=== PATIENT | female | born 1995 | race Caucasian/White ===

== ENCOUNTER 2017-11-11 14:22 | Emergency (ER) | payer OTHER ==
[~2017-11-11] VITALS: Ht 157.5 cm; Wt 65.0 kg
[2017-11-11 15:11] VITALS: TEMP 36.9; Ht 157.5 cm; Wt 65.0 kg
[2017-11-11] MEDS ORDERED: PRVHFAIN INH (16:05)
[2017-11-11] MEDS ORDERED: BCPILLS PO (16:05)
[2017-11-11 17:28] VITALS: BP 143/85; PULSE 83; O2SAT 97
[2017-11-11] MEDS ORDERED: MACROBID 100MG HOME PACK 1 EA VIAL PO ONE (17:30)
[2017-11-11] MEDS ORDERED: NITR-5 PO ×2 (17:33→17:34)
--- NOTE | 2017-11-11 17:34 | EMERGENCY ROOM VISIT NOTE ---
History First contact with patient: 15:42 Chief Complaint: URINARY SYMPTOMS Stated Complaint: PAIN/BURNING IN VAGINA, ABNORMAL BLEEDING, ABD LIZETH Nursing Triage Summary: Pt states Jameel she began having "really intense vaginal pain, a tearing sensation, especially when I had to pee. Urine stream was weak and there was blood, but my period was ending, but I'd wear a pad all night and there would be no blood and then when urinating there was blood, and the blood was bright bright bright red and period blood, in my experience always is brownish red in color." History of Present Illness The patient is a 22 year old female who presents to the Emergency Room with complaints of vaginal irritation. The patient reports that for the past 2 days , she has had vaginal pain/irritation when urinating. She reports that it is a tearing, burning pain. She states that she just finished her period and started a new pack of control pills. She has had bleeding which she believes is coming from her urine rather than her vagina. She has had UTIs in the past but states that she does not have any urinary urgency at this time. She does report that in the past, she has frequently had bleeding after sex. She saw SYSTEMS ADMINISTRATOR for this and was told that the tissue near her cervix was thin. She denies any concern for STDs. She denies abdominal pain/back pain or fevers. She denies abnormal vaginal discharge. Review of Systems A complete 10 point review of systems was reviewed with the patient with pertinent positives and negatives as per history of present illness. All else were negative. Past Medical/Surgical History Medical Problems: (1) No significant past medical history Surgical Problems: (1) No significant past surgical history Social History Smoking Status: Never Smoker Alcohol Use: occasionally Marital Status: in relationship Housing Status: lives with roommate Occupation Status: [employer] student Current/Historical Medications Scheduled Control Pills ( Control Pills), 1 TAB PO DAILY Nitrofurantoin Monohyd Macrocr (Macrobid), 100 MG PO BID Scheduled PRN Albuterol (Ventolin Hfa), 2 PUFFS INH UD PRN for Rescue/Asthma Symptoms Physical Exam Vital Signs Date Time Temp Pulse Resp B/P (MAP) Pulse Ox O2 Delivery O2 Flow Rate FiO2 11/11/17 17:28 83 18 143/85 97 Room Air 11/11/17 15:11 36.9 92 18 138/102 99 Room Air Physical Exam VITALS: Vitals are noted on the nurse's note and reviewed by myself. Vital signs stable. GENERAL: This is a 22-year-old female, in no acute distress, nondiaphoretic, well-developed well-nourished. HEART: Regular rate and rhythm without murmurs gallops or rubs. LUNGS: Clear to auscultation bilaterally without wheezes, rales or rhonchi. ABDOMEN: Positive bowel sounds x 4. Soft, nontender to palpation. PELVIC: External genitalia unremarkable. Moderate amount of blood within the vaginal vault. No evidence of cervicitis. No abnormal vaginal discharge. No CMT or adnexal tenderness. NEURO: Patient was alert and oriented to person place and time. Medical Decision & Procedures Laboratory Results Test 11/11/17 16:10 11/11/17 16:30 Urine Color DK YELLOW Urine Appearance CLOUDY (CLEAR) Urine pH 6.5 (4.5-7.5) Urine Specific Ada 1.030 (1.000-1.030) Urine Protein 1+ (NEG) Urine Glucose (UA) NEG (NEG) Urine Ketones TRACE (NEG) Urine Occult Blood 3+ (NEG) Urine Nitrite NEG (NEG) Urine Bilirubin NEG (NEG) Urine Urobilinogen NEG (NEG) Urine Leukocyte Esterase TRACE (NEG) Urine WBC (Auto) 5-10 /hpf (0-5) Urine RBC (Auto) >30 /hpf (0-4) Urine Hyaline Casts (Auto) 1-5 /lpf (0-5) Urine Epithelial Cells (Auto) >30 /lpf (0-5) Urine Bacteria (Auto) NEG (NEG) Urine Crystals (NONE PRSENT) Urine Test NEG (NEG) Date/Time Source Procedure Growth Status 11/11/17 16:30 Vaginal Swab Trichomonas Preparation - Final Complete Medications Administered Medications (Trade) Dose Ordered Sig/Gal[place] Route Start Time Stop Time Status Last Admin Dose Admin Nitrofurantoin (Macrobid Homepack 100MG) 1 homepack UD ONCE PO 11/11/17 17:30 11/11/17 17:31 DC 11/11/17 17:37 1 HOMEPACK Medical Decision Differential diagnosis includes UTI, BV, vaginal candidiasis, Chlamydia, gonorrhea, among others. The patient was evaluated as above. Pelvic exam was performed. There is no obvious evidence of a pelvic infection. Urinalysis was more suggestive of contamination, however given patient's symptoms she will be placed on a short course of Macrobid. Pelvic cultures were sent and are pending. The patient was advised to follow-up with her SYSTEMS ADMINISTRATOR regarding any recurrent symptoms. She verbalized understanding of my assessment and treatment plan and was discharged home in good condition. Medication Reconcilliation Current Medication List: was personally reviewed by me Blood Pressure Screening Patient's blood pressure: Elevated blood pressure Blood pressure disposition: Elevated BP felt to be situational Impression Primary Impression: Dysuria Departure Information Dispostion Home / Self-Care Condition GOOD Prescriptions Nitrofurantoin Monohyd Macrocr (Macrobid) 100 Mg Cap 100 MG PO BID for 6 Days, #12 CAP Prov: Yoanna George .EMANI 11/11/17 Referrals [facility] (PCP) Patient Instructions My [facility] Additional Instructions You have been treated in the Emergency Department for a Urinary Tract Infection (UTI). You have been prescribed Macrobid to be taken twice daily as prescribed. This is an antibiotic. All antibiotics have the potential to cause diarrhea. Stop this medication and contact a medical provider if you were to develop any significant adverse side effects including: wheezing, shortness of breath, passing out, vomiting, or a diffuse rash. Always take antibiotics as directed and COMPLETE the ENTIRE course regardless of the improvement of your symptoms. Drink plenty of water and stay well hydrated. As with any trip to the Emergency Department, you should follow-up with your Primary Care Provider from today's visit. Return to the emergency department if your symptoms persist despite treatment plan outlined above or if the following symptoms occur: increased fevers, chills , low back pain, nausea/vomiting, or blood in your urine.
--- NOTE | 2017-11-12 11:12 | Pharmacy Progress Note ---
ED Pharmacist Progress Note Date of Service: Nov 12, 2017. Received message to call about prescription issue. Called [facility] pharmacy, they had received two prescriptions for nitrofurantoin, 1 for a quantity of 12 and 1 for a quantity of 8. The prescription for 4 days (8 capsules) was intended to be cancelled by provider. Informed [facility] pharmacy to fill the prescription for 6 days (12 capsules).
== END 2017-11-11 17:43 | disposition home or self-care (01) ==
LOC: C.EDB 14:25 → C.EDC 17:43
DX: R30.0 Dysuria (principal); R31.9 Hematuria, unspecified; Z87.440 Personal history of urinary (tract) infections